=== PATIENT | male | born 1985 | race Caucasian/White ===

== ENCOUNTER 2017-07-06 14:45 | Emergency (ER) | payer BC ==
[~2017-07-06] VITALS: Ht 185.4 cm; Wt 102.8 kg
[2017-07-06] MEDS ORDERED: KEFLEX500 MG PO (16:18)
[2017-07-06 16:28] VITALS: BP 120/70
== END 2017-07-06 16:39 | disposition home or self-care (01) ==
LOC: EME 14:45
PROC: 3E0234Z Introduction of Serum, Toxoid and Vaccine into Muscle, Percutaneous Approach (ICD-10-PCS; principal; 2017-07-06)
DX: S40.851A Superficial foreign body of right upper arm, initial encounter (principal); X58.XXXA Exposure to other specified factors, initial encounter; Y99.0 Civilian activity done for income or pay; Z23 Encounter for immunization
CPT/HCPCS: 99281; 99283